=== PATIENT | female | born 1960 | race Caucasian/White ===

== ENCOUNTER 2016-07-16 15:24 | Emergency (ER) | payer OTHER ==
--- NOTE | 2016-07-16 17:20 | ED NURSING NOTES ---
Clinical Report - Nurses [facility] [address] [place] [address] 07/16/2016 15:27 [id number] TRI[facility] Triage time 15:34 Jul 16 2016. Acuity: LEVEL 3. Chief Complaint: VOMITING BLOOD. TAYE COMA SCORE: Taye Coma Scale: 15- eyes open spontaneously (4); best verbal response- oriented x 4 (5); best motor response- obeys commands (6). --15:49 Salma Palacios R.N. 15:34 07/16/16. BP: 185/82. HR: 95. RR: 18. O2 saturation: 94%. Temp: 98.1 F. Pain level now 0/10. --15:49 Salma Palacios R.N. Weight: 77.1 kg stated. Height/Length: 65 inches Per Patient. BMI: 28.3. --15:49 Salma Palacios R.N. Medications Amitriptyline HCl Oral 100 mg, daily. Forenesol. Iron Oral. --15:38 Salma Palacios R.N. Pantoprazole Sodium Oral. --15:38 Salma Palacios R.N. OxyCODONE HCl Oral. --15:38 Salma Palacios R.N. Zofran ODT Oral. --15:39 Salma Palacios R.N. Allergies Baclofen. (falling, incoherant, kidneys don't filter it, stays in her system) plastic tape . Renvela. Sulfa Antibiotics. Wellbutrin. (tachycardia, flush and dizzy) --15:39 Salma Palacios R.N. History Arrived by private vehicle. Historian: patient. Accompanied by family. Primary physician (Mark). This started just prior to arrival. ( Was seen in the ER this am in [place] for back pain. Was on her way home felt nauseated and threw up bright red blood.). She has had nausea and vomiting. No diarrhea, constipation, abdominal pain or fever. Last oral intake by patient was (crackers). 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 PAST MEDICAL HX: Gastroesophageal reflux disease. Peptic ulcer disease. No history of diabetes mellitus. No history of gallstones. Immunizations: up-to-date. The patient has had a hysterectomy. SOCIAL HX: Former smoker, end date 2015. Alcohol use. No drug use. No recent travel. No known contact with a sick individual. SELF HARM ASSESSMENT: A self harm assessment was performed. The patient answered "no" to the question "Have you recently felt down, depressed, or hopeless?" and "Do you have thoughts of harming or killing yourself?". FALL RISK ASSESSMENT: Fall risk assessment completed. No fall risk identified. NUTRITIONAL RISK ASSESSMENT: The nutritional risk assessment revealed no deficiencies. FUNCTIONAL ASSESSMENT: Functional assessment: no impairments noted. LEARNING NEEDS ASSESSMENT: The learning needs assessment revealed no barriers. ABUSE ASSESSMENT: Abuse assessment: (yes) The patient was asked "Do you feel safe in your home?". SKIN INTEGRITY ASSESSMENT: Skin integrity risk assessment completed. No skin integrity risk identified. --15:49 Salma Palacios R.N. PROBLEMS: Anemia. GI Bleeding. End stage renal failure on dialysis. Gallstone(s). Gastroesophageal Reflux Disease. UTI - Urinary Tract Infection. MRSA Infection. Contusion. Laceration. Tetanus Status. Immunizations. --15:39 Salma Palacios R.N. ADDITIONAL SURGERIES: ACL. Appendectomy. AV shunt for dialysis. Cholecystectomy. Fistula. Hernia Repair. Hip Surgery. Hysterectomy. Lumpectomy of breast. Tonsillectomy. Tubal Ligation. Ulnar nerve transfer. --15:39 Salma Palacios R.N. Interventions ID and allergy band on patient. --15:49 Salma Palacios R.N. PHYSICAL ASSESSMENT Ambulatory to room. GENERAL / NEURO / PSYCH: Alert. Oriented X 4. Appears in no acute distress. HEENT: Mucous membranes are pink. RESPIRATORY: Respirations not labored. Breath sounds within normal limits. CVS: Normal sinus rhythm noted. Capillary refill less than 2 seconds. GI / : The patient has had nausea. Abdominal distention. Abdomen soft and nontender. Bowel sounds within normal limits. ( Last BM before arrival and normal). SKIN: Skin is warm and dry. --15:51 Salma Palacios R.N. NURSING PROGRESS NOTES The initial plan of care for this patient includes an assessment with efforts to address patient positioning and appropriate ambient lighting; impairment of the gastrointestinal system. Pulse oximeter and NIBP monitor placed on patient. Patient gowned. Reassurance given. Call light placed in reach. Side rails up x 1. Bed placed in lowest position. Brakes of bed on. --15:51 Salma Palacios R.N. 15:52 07/16/2016 Site #1 started via IV in the right forearm with an 20g angiocath, with aseptic technique and good blood return; two attempts. Blood drawn: rainbow set. Labeled in the presence of the patient and sent to the lab. Saline lock flushed with 10 mL saline (Done by Douglas KRUEGER). --15:52 Salma Palacios R.N. 18:26 07/16/16. BP: 110/61. HR: 70. RR: 18. O2 saturation: 99%. Temp: 98.6 F. Pain level now 3/10. --18:27 Salma Palacios R.N. 18:37 07/16/2016 PROTONIX (Pantoprazole Sodium) IVP 80 mg given over 4 minute(s) via site #1. Allergies verified and confirmed 5 rights. IV patency established. IV site checked: no pain, redness, or swelling. IV flushed thoroughly pre- and post-medication administration. --18:52 Salma Palacios R.N. 18:44 07/16/2016 PROTONIX 80MG (Pantoprazole Sodium) IVP 80 mg given over 8 hour(s) via site #1. Allergies verified and confirmed 5 rights. IV patency established. IV site checked: no pain, redness, or swelling. IV flushed thoroughly pre- and post-medication administration. --18:54 Salma Palacios R.N. DISPOSITION / DISCHARGE 18:26 07/16/16. BP: 110/61. HR: 70. RR: 18. O2 saturation: 99%. Temp: 98.6 F. Pain level now 3/10. --18:50 Salma Palacios R.N. Departure time: 18:51 Jul 16 2016. Condition at departure: stable. Transferred to [facility]. ( [facility] ambulance here report given patient transported.). --18:51 Salma Palacios R.N. 18:42 07/16/2016 Site #[address] upon transfer; patent. Good blood return present. Converted to saline lock and flushed with 10 mL saline. --18:52 Salma Palacios R.N. Locked/Released at 07/16/2016 19:04 by Salma Palacios R.N.
--- NOTE | 2016-07-16 17:20 | ED CLINICAL REPORT ---
Clinical Report - Physicians/Mid Levels [facility] [address] [place] [address] 07/16/2016 15:27 Patient: GENET SHIPLEY Time Seen: 1537; upon arrival, initial patient contact, initial documentation, patient care assumed. Arrived- By private vehicle. Historian- patient. CPT: Critical care 30-74 min plus (#[id number]). HISTORY OF PRESENT ILLNESS Chief Complaint: VOMITING. This started today one episode of about a cup. and is now gone. No recent travel. She has had nausea. She has had mild vomiting (vomit had bright red blood in it). The vomiting has occurred only once and has been blood-tinged. No bilious emesis, feculent emesis, coffee-grounds emesis, frankly bloody emesis or unusually dark emesis. No diarrhea, black stools, bloody stools, abdominal pain or constipation. No flank pain, history of possible bad food exposure, known contact with a sick individual or change in routine. Has not recently been camping or on antibiotics. The illness is described as mild. (pt states her levels have been low for some time now, and she is getting weekly injections of epogen was supposed to do dialysis today). Similar symptoms previously: Frequently, worse. Recent medical care: The patient was seen recently at another facility in the emergency department. ( was at [facility] this am for back pain). REVIEW OF SYSTEMS No fever, difficulty with urination or urination, dizziness or chest pain. No difficulty breathing, excessive urination, skin rash or rash or jaundice. No fainting episodes, epistaxis, sore throat, abdominal pain or bloody stools. No urinary frequency, hematuria, diabetic symptoms or easy bruising. The patient has had black stools and weakness. All systems otherwise negative, except as recorded above. PAST HISTORY See nurses notes. PROBLEMS: Anemia. GI Bleeding.PUD. End stage renal failure on dialysis. Gallstone(s). Gastroesophageal Reflux Disease. UTI - Urinary Tract Infection. MRSA Infection. Contusion. Laceration. Tetanus Status. Immunizations. --15:39 Salma Palacios R.N. ADDITIONAL SURGERIES: ACL. Appendectomy. AV shunt for dialysis. Cholecystectomy. Fistula. Hernia Repair. Hip Surgery. Hysterectomy. Lumpectomy of breast. Tonsillectomy. Tubal Ligation. Ulnar nerve transfer. --15:39 Salma Palacios R.N. SOCIAL HISTORY Former smoker. No alcohol use or drug use. Is a local resident. FAMILY HISTORY Negative. ADDITIONAL NOTES The nursing notes have been reviewed with agreement regarding the chief complaint, HPI, ROS, PMH and patient medications and allergies. PHYSICAL EXAM Vital Signs: 07/16/2016 15:34 BP: 185/82. HR: 95. RR: 18. O2 saturation: 94%. Temp: 98.1 F. Have been reviewed as normal and appear to be correct. Appearance: Alert. Oriented X3. No acute distress. Eyes: Pupils equal, round and reactive to light. Eyes normal inspection. ENT: Pharynx normal. Neck: Normal inspection. Neck supple. CVS: Normal heart rate and rhythm. Heart sounds normal. Pulses normal. Respiratory: No respiratory distress. Breath sounds normal. Abdomen: Soft and nontender. Bowel sounds normal. No organomegaly. No mass. Back: Normal inspection. Rectal: Weakly heme-positive stool; hemoccult director quality systems check passed. (POC test reference range: negative). Rectal exam normal and nontender. Skin: Skin warm and dry. Normal skin color. No rash. Normal skin turgor. Extremities: Extremities exhibit normal ROM. No lower extremity edema. (dialysis shunt L FA, palpable brui, site clear of s/s of infection). Neuro: Oriented X 3. No motor deficit. No sensory deficit. LABS, X-RAYS, AND EKG Laboratory Tests: CBC w Diff: (ANNA: 07/16/2016 15:10) ( MsgRcvd 07/16/2016 16:19) Final results Test Result Flag Units (Reference) WHITE BLOOD COUNT 8.9 K/uL (4.5-11.5) RED BLOOD COUNT 2.63 L M/uL (4.00-5.20) HEMOGLOBIN 7.8 L gm/dL (12.0-16.0) HEMATOCRIT 23.8 L % (36.0-46.0) MEAN CELL VOLUME 90 fL (80-100) MEAN CORPUSCULAR HGB 30 pg (26-34) MEAN CORPUSCULAR HGB CONC 33 g/dL (31-37) RED CELL DISTRIBUTION WIDTH 17.4 H % (11.6-14.8) PLATELET COUNT 355 K/uL (150-400) NEUTROPHIL % 74.5 % (50-75) LYMPH % 14.7 L % (25-40) MONO % 9.4 % (3-14) EOSINOPHIL % 0.9 % (0-4) BASOPHIL % 0.5 % (0-2) PT with INR: (ANNA: 07/16/2016 15:10) ( [facility] 07/16/2016 18:01) Final results Test Result Flag Units (Reference) INR 1.1 (0.8-1.2) Low Intensity Therapy: INR 1.5-2.0 PT range 18.5-23.1Mod.Intensity Therapy: INR 2.0-3.0 PT range 23.1-31.5High Intensity Therapy: INR 2.5-3.5 PT range 27.4-35.5High Intensity Therapy 2: INR 3.0-4.0 PT range 31.5-39.3 APTT 38 H SECONDS (24-34) CMP: (ANNA: 07/16/2016 15:10) ( [facility] 07/16/2016 16:40) Final results Test Result Flag Units (Reference) GLUCOSE 106 mg/dL (70-110) BUN 81 *H mg/dL (7-18) CRITICAL RESULTS CALLEDCalled to ELIANA LOWE RN 07/16/16 1638Were 2 patient identifiers used? YESWas the result read back? YESCRITICAL RESULTS CALLEDCalled to ELIANA LOWE RN 07/16/16 1639Were 2 patient identifiers used? YESWas the result read back? YES CREATININE 11.6 *H mg/dL (0.6-1.3) CRITICAL RESULTS CALLEDCalled to ELIANA LOWE RN 07/16/16 1638Were 2 patient identifiers used? YESWas the result read back? YES Estimated GFR 3.58 mL/min Estimated GFR- 4.34 mL/min Note: Persistent reduction over 3 months in eGFR<60 mL/min/1.73 m2 defines CKD. Patients with eGFR values>=60 mL/min/1.73 m2 may also have CKD if evidence ofpersistent proteinuria. Additional information may be foundat www.kidney.org. SODIUM 138 mmol/L (136-145) POTASSIUM 5.4 H mmol/L (3.5-5.1) CHLORIDE 93 L mmol/L (98-107) CARBON DIOXIDE 27 mmol/L (21-32) CALCIUM 10.2 H mg/dL (8.5-10.1) TOTAL PROTEIN 7.6 g/dL (6.4-8.2) ALBUMIN 3.5 g/dL (3.3-5.0) BILIRUBIN, TOTAL 0.4 mg/dL (0.0-1.0) ALKALINE PHOSPHATASE 136 H U/L (46-116) AST (SGOT) 10 L U/L (15-37) ALT (SGPT) 16 U/L (12-78) LIPASE 277 U/L (73-393) AMYLASE 55 U/L (25-115) . PROGRESS AND PROCEDURES Course of Care: heplock Pt with UGI bleed and in need of dialysis. Will need transfer to [place] for GI work-up and dialysis. Critical care performed (95 minutes). Time is exclusive of separately billable procedures. Time includes: direct patient care, patient reassessment, coordination of patient care, interpretation of data (laboratory data and pulse oximetry), review of patient's medical records and documentation of patient care. Procedures included in critical care time: peripheral IV placement and phlebotomy. Discussed case with on-call health care provider, (Apoorva: [facility] hospitalist.). Reviewed test results. Agreed upon decision to admit. Health care provider will see patient in hospital. Patient/family counseled. Differential Diagnosis: I considered gastritis, gastroenteritis, peptic ulcer disease, Menetriere's disease, gastroesophageal reflux disease, esophagitis, esophageal varices, Salma-Escobar tear of the esophagus, ischemia of bowel, colitis, diverticular disease, intestinal tumor, intestinal polyps, colon cancer, ulcerative colitis and cancer as a possible cause of GI bleed in this patient. This is a partial list of diagnoses considered. Above considerations are based on history, physical exam, reassessment and laboratory data. Differential diagnosis was discussed with patient. Disposition: Transferred to [facility]. CLINICAL IMPRESSION Occult and major GI bleed with hematemesis. Chronic Renal Failure. Blood loss and CRF anemia. (Electronically signed by Corey Azar MD 07/17/2016 20:44)
--- NOTE | 2016-07-16 17:20 | ED NURSING NOTES ---
Clinical Report - Nurses [facility] [address] [place] [address] 07/16/2016 15:27 [id number] TRI[facility] Triage time 15:34 Jul 16 2016. Acuity: LEVEL 3. Chief Complaint: VOMITING BLOOD. TAYE COMA SCORE: Taye Coma Scale: 15- eyes open spontaneously (4); best verbal response- oriented x 4 (5); best motor response- obeys commands (6). --15:49 Salma Palacios R.N. 15:34 07/16/16. BP: 185/82. HR: 95. RR: 18. O2 saturation: 94%. Temp: 98.1 F. Pain level now 0/10. --15:49 Salma Palacios R.N. Weight: 77.1 kg stated. Height/Length: 65 inches Per Patient. BMI: 28.3. --15:49 Salma Palacios R.N. Medications Amitriptyline HCl Oral 100 mg, daily. Forenesol. Iron Oral. --15:38 Salma Palacios R.N. Pantoprazole Sodium Oral. --15:38 Salma Palacios R.N. OxyCODONE HCl Oral. --15:38 Salma Palacios R.N. Zofran ODT Oral. --15:39 Salma Palacios R.N. Allergies Baclofen. (falling, incoherant, kidneys don't filter it, stays in her system) plastic tape . Renvela. Sulfa Antibiotics. Wellbutrin. (tachycardia, flush and dizzy) --15:39 Salma Palacios R.N. History Arrived by private vehicle. Historian: patient. Accompanied by family. Primary physician (Mark). This started just prior to arrival. ( Was seen in the ER this am in [place] for back pain. Was on her way home felt nauseated and threw up bright red blood.). She has had nausea and vomiting. No diarrhea, constipation, abdominal pain or fever. Last oral intake by patient was (crackers). 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 PAST MEDICAL HX: Gastroesophageal reflux disease. Peptic ulcer disease. No history of diabetes mellitus. No history of gallstones. Immunizations: up-to-date. The patient has had a hysterectomy. SOCIAL HX: Former smoker, end date 2015. Alcohol use. No drug use. No recent travel. No known contact with a sick individual. SELF HARM ASSESSMENT: A self harm assessment was performed. The patient answered "no" to the question "Have you recently felt down, depressed, or hopeless?" and "Do you have thoughts of harming or killing yourself?". FALL RISK ASSESSMENT: Fall risk assessment completed. No fall risk identified. NUTRITIONAL RISK ASSESSMENT: The nutritional risk assessment revealed no deficiencies. FUNCTIONAL ASSESSMENT: Functional assessment: no impairments noted. LEARNING NEEDS ASSESSMENT: The learning needs assessment revealed no barriers. ABUSE ASSESSMENT: Abuse assessment: (yes) The patient was asked "Do you feel safe in your home?". SKIN INTEGRITY ASSESSMENT: Skin integrity risk assessment completed. No skin integrity risk identified. --15:49 Salma Palacios R.N. PROBLEMS: Anemia. GI Bleeding. End stage renal failure on dialysis. Gallstone(s). Gastroesophageal Reflux Disease. UTI - Urinary Tract Infection. MRSA Infection. Contusion. Laceration. Tetanus Status. Immunizations. --15:39 Salma Palacios R.N. ADDITIONAL SURGERIES: ACL. Appendectomy. AV shunt for dialysis. Cholecystectomy. Fistula. Hernia Repair. Hip Surgery. Hysterectomy. Lumpectomy of breast. Tonsillectomy. Tubal Ligation. Ulnar nerve transfer. --15:39 Salma Palacios R.N. Interventions ID and allergy band on patient. --15:49 Salma Palacios R.N. PHYSICAL ASSESSMENT Ambulatory to room. GENERAL / NEURO / PSYCH: Alert. Oriented X 4. Appears in no acute distress. HEENT: Mucous membranes are pink. RESPIRATORY: Respirations not labored. Breath sounds within normal limits. CVS: Normal sinus rhythm noted. Capillary refill less than 2 seconds. GI / : The patient has had nausea. Abdominal distention. Abdomen soft and nontender. Bowel sounds within normal limits. ( Last BM before arrival and normal). SKIN: Skin is warm and dry. --15:51 Salma Palacios R.N. NURSING PROGRESS NOTES The initial plan of care for this patient includes an assessment with efforts to address patient positioning and appropriate ambient lighting; impairment of the gastrointestinal system. Pulse oximeter and NIBP monitor placed on patient. Patient gowned. Reassurance given. Call light placed in reach. Side rails up x 1. Bed placed in lowest position. Brakes of bed on. --15:51 Salma Palacios R.N. 15:52 07/16/2016 Site #1 started via IV in the right forearm with an 20g angiocath, with aseptic technique and good blood return; two attempts. Blood drawn: rainbow set. Labeled in the presence of the patient and sent to the lab. Saline lock flushed with 10 mL saline (Done by Douglas KRUEGER). --15:52 Salma Palacios R.N. 18:26 07/16/16. BP: 110/61. HR: 70. RR: 18. O2 saturation: 99%. Temp: 98.6 F. Pain level now 3/10. --18:27 Salma Palacios R.N. 18:37 07/16/2016 PROTONIX (Pantoprazole Sodium) IVP 80 mg given over 4 minute(s) via site #1. Allergies verified and confirmed 5 rights. IV patency established. IV site checked: no pain, redness, or swelling. IV flushed thoroughly pre- and post-medication administration. --18:52 Salma Palacios R.N. 18:44 07/16/2016 PROTONIX 80MG (Pantoprazole Sodium) IVP 80 mg given over 8 hour(s) via site #1. Allergies verified and confirmed 5 rights. IV patency established. IV site checked: no pain, redness, or swelling. IV flushed thoroughly pre- and post-medication administration. --18:54 Salma Palacios R.N. DISPOSITION / DISCHARGE 18:26 07/16/16. BP: 110/61. HR: 70. RR: 18. O2 saturation: 99%. Temp: 98.6 F. Pain level now 3/10. --18:50 Salma Palacios R.N. Departure time: 18:51 Jul 16 2016. Condition at departure: stable. Transferred to [facility]. ( [place] ambulance here report given patient transported.). --18:51 Salma Palacios R.N. 18:42 07/16/2016 Site #[address] upon transfer; patent. Good blood return present. Converted to saline lock and flushed with 10 mL saline. --18:52 Salma Palacios R.N. Locked/Released at 07/16/2016 19:04 by Salma Palacios R.N.
--- NOTE | 2016-07-16 17:20 | ED CLINICAL REPORT ---
Clinical Report - Physicians/Mid Levels [facility] [address] [place] [address] 07/16/2016 15:27 Patient: GENET SHIPLEY Time Seen: 1537; upon arrival, initial patient contact, initial documentation, patient care assumed. Arrived- By private vehicle. Historian- patient. CPT: Critical care 30-74 min plus (#[id number]). HISTORY OF PRESENT ILLNESS Chief Complaint: VOMITING. This started today one episode of about a cup. and is now gone. No recent travel. She has had nausea. She has had mild vomiting (vomit had bright red blood in it). The vomiting has occurred only once and has been blood-tinged. No bilious emesis, feculent emesis, coffee-grounds emesis, frankly bloody emesis or unusually dark emesis. No diarrhea, black stools, bloody stools, abdominal pain or constipation. No flank pain, history of possible bad food exposure, known contact with a sick individual or change in routine. Has not recently been camping or on antibiotics. The illness is described as mild. (pt states her levels have been low for some time now, and she is getting weekly injections of epogen was supposed to do dialysis today). Similar symptoms previously: Frequently, worse. Recent medical care: The patient was seen recently at another facility in the emergency department. ( was at [facility] this am for back pain). REVIEW OF SYSTEMS No fever, difficulty with urination or urination, dizziness or chest pain. No difficulty breathing, excessive urination, skin rash or rash or jaundice. No fainting episodes, epistaxis, sore throat, abdominal pain or bloody stools. No urinary frequency, hematuria, diabetic symptoms or easy bruising. The patient has had black stools and weakness. All systems otherwise negative, except as recorded above. PAST HISTORY See nurses notes. PROBLEMS: Anemia. GI Bleeding.PUD. End stage renal failure on dialysis. Gallstone(s). Gastroesophageal Reflux Disease. UTI - Urinary Tract Infection. MRSA Infection. Contusion. Laceration. Tetanus Status. Immunizations. --15:39 Salma Palacios R.N. ADDITIONAL SURGERIES: ACL. Appendectomy. AV shunt for dialysis. Cholecystectomy. Fistula. Hernia Repair. Hip Surgery. Hysterectomy. Lumpectomy of breast. Tonsillectomy. Tubal Ligation. Ulnar nerve transfer. --15:39 Salma Palacios R.N. SOCIAL HISTORY Former smoker. No alcohol use or drug use. Is a local resident. FAMILY HISTORY Negative. ADDITIONAL NOTES The nursing notes have been reviewed with agreement regarding the chief complaint, HPI, ROS, PMH and patient medications and allergies. PHYSICAL EXAM Vital Signs: 07/16/2016 15:34 BP: 185/82. HR: 95. RR: 18. O2 saturation: 94%. Temp: 98.1 F. Have been reviewed as normal and appear to be correct. Appearance: Alert. Oriented X3. No acute distress. Eyes: Pupils equal, round and reactive to light. Eyes normal inspection. ENT: Pharynx normal. Neck: Normal inspection. Neck supple. CVS: Normal heart rate and rhythm. Heart sounds normal. Pulses normal. Respiratory: No respiratory distress. Breath sounds normal. Abdomen: Soft and nontender. Bowel sounds normal. No organomegaly. No mass. Back: Normal inspection. Rectal: Weakly heme-positive stool; hemoccult quality supervisor check passed. (POC test reference range: negative). Rectal exam normal and nontender. Skin: Skin warm and dry. Normal skin color. No rash. Normal skin turgor. Extremities: Extremities exhibit normal ROM. No lower extremity edema. (dialysis shunt L FA, palpable brui, site clear of s/s of infection). Neuro: Oriented X 3. No motor deficit. No sensory deficit. LABS, X-RAYS, AND EKG Laboratory Tests: CBC w Diff: (ANNA: 07/16/2016 15:10) ( MsgRcvd 07/16/2016 16:19) Final results Test Result Flag Units (Reference) WHITE BLOOD COUNT 8.9 K/uL (4.5-11.5) RED BLOOD COUNT 2.63 L M/uL (4.00-5.20) HEMOGLOBIN 7.8 L gm/dL (12.0-16.0) HEMATOCRIT 23.8 L % (36.0-46.0) MEAN CELL VOLUME 90 fL (80-100) MEAN CORPUSCULAR HGB 30 pg (26-34) MEAN CORPUSCULAR HGB CONC 33 g/dL (31-37) RED CELL DISTRIBUTION WIDTH 17.4 H % (11.6-14.8) PLATELET COUNT 355 K/uL (150-400) NEUTROPHIL % 74.5 % (50-75) LYMPH % 14.7 L % (25-40) MONO % 9.4 % (3-14) EOSINOPHIL % 0.9 % (0-4) BASOPHIL % 0.5 % (0-2) PT with INR: (ANNA: 07/16/2016 15:10) ( [facility] 07/16/2016 18:01) Final results Test Result Flag Units (Reference) INR 1.1 (0.8-1.2) Low Intensity Therapy: INR 1.5-2.0 PT range 18.5-23.1Mod.Intensity Therapy: INR 2.0-3.0 PT range 23.1-31.5High Intensity Therapy: INR 2.5-3.5 PT range 27.4-35.5High Intensity Therapy 2: INR 3.0-4.0 PT range 31.5-39.3 APTT 38 H SECONDS (24-34) CMP: (ANNA: 07/16/2016 15:10) ( [facility] 07/16/2016 16:40) Final results Test Result Flag Units (Reference) GLUCOSE 106 mg/dL (70-110) BUN 81 *H mg/dL (7-18) CRITICAL RESULTS CALLEDCalled to ELIANA LOWE RN 07/16/16 1638Were 2 patient identifiers used? YESWas the result read back? YESCRITICAL RESULTS CALLEDCalled to ELIANA LOWE RN 07/16/16 1639Were 2 patient identifiers used? YESWas the result read back? YES CREATININE 11.6 *H mg/dL (0.6-1.3) CRITICAL RESULTS CALLEDCalled to ELIANA LOWE RN 07/16/16 1638Were 2 patient identifiers used? YESWas the result read back? YES Estimated GFR 3.58 mL/min Estimated GFR- 4.34 mL/min Note: Persistent reduction over 3 months in eGFR<60 mL/min/1.73 m2 defines CKD. Patients with eGFR values>=60 mL/min/1.73 m2 may also have CKD if evidence ofpersistent proteinuria. Additional information may be foundat www.kidney.org. SODIUM 138 mmol/L (136-145) POTASSIUM 5.4 H mmol/L (3.5-5.1) CHLORIDE 93 L mmol/L (98-107) CARBON DIOXIDE 27 mmol/L (21-32) CALCIUM 10.2 H mg/dL (8.5-10.1) TOTAL PROTEIN 7.6 g/dL (6.4-8.2) ALBUMIN 3.5 g/dL (3.3-5.0) BILIRUBIN, TOTAL 0.4 mg/dL (0.0-1.0) ALKALINE PHOSPHATASE 136 H U/L (46-116) AST (SGOT) 10 L U/L (15-37) ALT (SGPT) 16 U/L (12-78) LIPASE 277 U/L (73-393) AMYLASE 55 U/L (25-115) . PROGRESS AND PROCEDURES Course of Care: heplock Pt with UGI bleed and in need of dialysis. Will need transfer to [place] for GI work-up and dialysis. Critical care performed (95 minutes). Time is exclusive of separately billable procedures. Time includes: direct patient care, patient reassessment, coordination of patient care, interpretation of data (laboratory data and pulse oximetry), review of patient's medical records and documentation of patient care. Procedures included in critical care time: peripheral IV placement and phlebotomy. Discussed case with on-call health care provider, (Apoorva: [place] hospitalist.). Reviewed test results. Agreed upon decision to admit. Health care provider will see patient in hospital. Patient/family counseled. Differential Diagnosis: I considered gastritis, gastroenteritis, peptic ulcer disease, Menetriere's disease, gastroesophageal reflux disease, esophagitis, esophageal varices, Salma-Escobar tear of the esophagus, ischemia of bowel, colitis, diverticular disease, intestinal tumor, intestinal polyps, colon cancer, ulcerative colitis and cancer as a possible cause of GI bleed in this patient. This is a partial list of diagnoses considered. Above considerations are based on history, physical exam, reassessment and laboratory data. Differential diagnosis was discussed with patient. Disposition: Transferred to [facility]. CLINICAL IMPRESSION Occult and major GI bleed with hematemesis. Chronic Renal Failure. Blood loss and CRF anemia. (Electronically signed by Corey Azar MD 07/17/2016 20:44)
--- NOTE | 2016-07-16 17:20 | ED ORDER SUMMARY ---
..... Patient: GENET SHIPLEY OrderSheet [facility] VisitID: [id number] [address] [place] [address] 56y, F Registration Date/Time: 07/16/2016 ORDER SHEET Weight: 77.1 kg (stated) Allergies: Baclofen, plastic tape , Renvela, Sulfa Antibiotics, Wellbutrin GENERAL ORDERS: CBC w Diff Urgent (15:45 07/16/2016 HBivens A.R.N.P.) (Ack 15:47 KHoerner) (15:52 LWhalen R.N.) CMP Urgent (15:45 07/16/2016 HBivens A.R.N.P.) (Ack 15:47 KHoerner) (15:52 LWhalen R.N.) Amylase Urgent (15:45 07/16/2016 HBivens A.R.N.P.) (Ack 15:47 KHoerner) (15:52 LWhalen R.N.) Lipase Urgent (15:45 07/16/2016 HBivens A.R.N.P.) (Ack 15:47 KHoerner) (15:52 LWhalen R.N.) PT with INR Urgent (17:43 07/16/2016 Desiree GRIMES) (17:48 KHoerner) PTT Urgent (17:43 07/16/2016 Desiree GRIMES) (17:48 KHoerner) Type & Screen Urgent (17:43 07/16/2016 Desiree GRIMES) (17:48 KHoerner) MEDICATION ORDERS: - (protonix drip 8 mg per hour) (17:53 07/16/2016 Desiree GRIMES) (Cancelled: Other18:52 LWhalen R.N.) IV FLUIDS: IV Saline Lock (15:45 07/16/2016 HBivens A.R.N.P.) (15:52 LWhalen R.N.) Protonix IVP 80mg 80 mg (Mix in NS 20ml over 4min) (17:53 07/16/2016 Desiree GRIMES) (18:52 LWhalen R.N.) Protonix IVP 80mg 80 mg (Mix in NS 20ml over 4min) (18:37 07/16/2016 Desiree GRIMES) (18:54 Nirali Clark) ORDER SHEET NOTES: [Electronically signed by Salma Palacios R.N. (19:04 07/16/2016)] [Electronically signed by Corey Azar MD (20:44 07/17/2016)] [Electronically locked/signed by Salma Palacios R.N. (19:04 07/16/2016)]
--- NOTE | 2016-07-16 17:20 | ED ORDER SUMMARY ---
..... Patient: GENET SHIPLEY OrderSheet [facility] VisitID: [id number] [address] [place] [address] 56y, F Registration Date/Time: 07/16/2016 ORDER SHEET Weight: 77.1 kg (stated) Allergies: Baclofen, plastic tape , Renvela, Sulfa Antibiotics, Wellbutrin GENERAL ORDERS: CBC w Diff Urgent (15:45 07/16/2016 HBivens A.R.N.P.) (Ack 15:47 KHoerner) (15:52 LWhalen R.N.) CMP Urgent (15:45 07/16/2016 HBivens A.R.N.P.) (Ack 15:47 KHoerner) (15:52 LWhalen R.N.) Amylase Urgent (15:45 07/16/2016 HBivens A.R.N.P.) (Ack 15:47 KHoerner) (15:52 LWhalen R.N.) Lipase Urgent (15:45 07/16/2016 HBivens A.R.N.P.) (Ack 15:47 KHoerner) (15:52 LWhalen R.N.) PT with INR Urgent (17:43 07/16/2016 Desiree GRIMES) (17:48 KHoerner) PTT Urgent (17:43 07/16/2016 Desiree GRIMES) (17:48 KHoerner) Type & Screen Urgent (17:43 07/16/2016 Desiree GRIMES) (17:48 KHoerner) MEDICATION ORDERS: - (protonix drip 8 mg per hour) (17:53 07/16/2016 Desiree GRIMES) (Cancelled: Other18:52 LWhalen R.N.) IV FLUIDS: IV Saline Lock (15:45 07/16/2016 HBivens A.R.N.P.) (15:52 LWhalen R.N.) Protonix IVP 80mg 80 mg (Mix in NS 20ml over 4min) (17:53 07/16/2016 Desiree GRIMES) (18:52 LWhalen R.N.) Protonix IVP 80mg 80 mg (Mix in NS 20ml over 4min) (18:37 07/16/2016 Desiree GRIMES) (18:54 Nirali Clark) ORDER SHEET NOTES: [Electronically signed by Salma Palacios R.N. (19:04 07/16/2016)] [Electronically signed by Corey Azar MD (20:44 07/17/2016)] [Electronically locked/signed by Salma Palacios R.N. (19:04 07/16/2016)]
--- NOTE | 2016-07-17 20:44 | ED DISCHARGE INSTRUCTIONS ---
Patient: GENET SHIPLEY General Instructions [facility] VisitID: [id number] [place] [address] 56y, F Registration Date/Time: 07/16/2016 Occult and major GI bleed with hematemesis. Chronic Renal Failure. Blood loss and CRF anemia. ADDITIONAL INFORMATION GI Bleeding (Upper), Stable There are signs that you have bled from your upper intestinal tract (esophagus, stomach or upper intestine). This may be due to: Repeated vomiting which may cause a small tear in the lining of the esophagus, An ulcer in the stomach or duodenum (upper intestine) Severe gastritis (from use of alcohol, aspirin or anti-inflammatory drugs) Esophageal varices (enlarged veins in the esophagus) may also cause bleeding like this. Your exam today showed that you have not lost a large amount of blood and your condition is stable. Bleeding from the upper GI tract causes the stool to turn black. Home Care: 1) If your bleeding is due to an ulcer or gastritis, an acid-blocking medicine will help. Unless an acid delphine was prescribed (or if you cannot afford one that was prescribed), you may use mnhj-ook-mpbxdeu drugs such as Pepcid AC (famotidine), Tagamet (cimetidine) or Zantac (ranitidine). These begin to work within a few hours. Prilosec OTC (omeprazole) is a new type of acid delphine which may be more effective. It takes up to four days for its full effect. You may get additional short-term relief by taking antacids (Mylanta or Maalox). It should be taken one hour after meals and at bedtime. Do not take Tagamet (cimetidine), Zantac (ranitidine) or Carafate (sucralfate) within one hour of an antacid. 2) Avoid factors which increase stomach acid. These include cigarettes, caffeine (coffee, govind, teas) and stress. 3) Avoid substances that irritate your stomach. These include aspirin and anti-inflammatory drugs (such as ibuprofen, Advil, Motrin, naproxen, Aleve, Naprosyn), alcohol and spicy foods. Prednisone and related prescription drugs can cause an ulcer. Discuss with your doctor if you are taking these. 4) Take any prescribed medicine as directed to promote healing. 5) If alcohol is a possible cause of your GI bleeding, it is urgent that you talk with your doctor about ways to help you quit. Follow Up with your doctor as advised. Get Prompt Medical Attention if any of the following occur: -- Stomach pain worsens -- Pain appears, worsens or spreads to the neck, back, shoulder or arm -- You vomit blood (red or black color) -- You feel weak or dizzy, or you faint -- You have fever or abdominal swelling -- Red blood in the stool You have been given the following additional information: GI Bleed, Upper (Stable) (Electronically signed by Corey Azar MD 07/17/2016 20:44)
--- NOTE | 2016-07-17 20:44 | ED MED RECONCILIATION SUMMARY ---
Patient: GENET SHIPLEY Medication Reconciliation Report [facility] VisitID: [id number] [address] [place] [address] 56y, F Registration Date/Time: 07/16/2016 Weight: 77.1 kg Height/Length: 65 in. BMI: 28.3 ALLERGIES: Baclofen, plastic tape , Renvela, Sulfa Antibiotics, Wellbutrin The patient's Home Medications are listed below: THE FOLLOWING MEDICATIONS NEED TO BE RECONCILED: Amitriptyline HCl Oral 100 mg, daily Forenesol Iron Oral OxyCODONE HCl Oral Pantoprazole Sodium Oral Zofran ODT Oral The source(s) of the original Home Medication information: Not obtained. The following Medications were given to the patient in the Emergency Department: PROTONIX [IVP] IVP 80 mg, administered: 07/16/2016 6:37:00 PM PROTONIX 80MG [IVP] IVP 80 mg, administered: 07/16/2016 6:44:00 PM The following Medications were prescribed to the patient: None.
--- NOTE | 2016-07-17 20:44 | ED DISCHARGE INSTRUCTIONS ---
Patient: GENET SHIPLEY General Instructions [facility] VisitID: [id number] [place] [address] 56y, F Registration Date/Time: 07/16/2016 Occult and major GI bleed with hematemesis. Chronic Renal Failure. Blood loss and CRF anemia. ADDITIONAL INFORMATION GI Bleeding (Upper), Stable There are signs that you have bled from your upper intestinal tract (esophagus, stomach or upper intestine). This may be due to: Repeated vomiting which may cause a small tear in the lining of the esophagus, An ulcer in the stomach or duodenum (upper intestine) Severe gastritis (from use of alcohol, aspirin or anti-inflammatory drugs) Esophageal varices (enlarged veins in the esophagus) may also cause bleeding like this. Your exam today showed that you have not lost a large amount of blood and your condition is stable. Bleeding from the upper GI tract causes the stool to turn black. Home Care: 1) If your bleeding is due to an ulcer or gastritis, an acid-blocking medicine will help. Unless an acid delphine was prescribed (or if you cannot afford one that was prescribed), you may use liov-vac-mwkvgyn drugs such as Pepcid AC (famotidine), Tagamet (cimetidine) or Zantac (ranitidine). These begin to work within a few hours. Prilosec OTC (omeprazole) is a new type of acid delphine which may be more effective. It takes up to four days for its full effect. You may get additional short-term relief by taking antacids (Mylanta or Maalox). It should be taken one hour after meals and at bedtime. Do not take Tagamet (cimetidine), Zantac (ranitidine) or Carafate (sucralfate) within one hour of an antacid. 2) Avoid factors which increase stomach acid. These include cigarettes, caffeine (coffee, govind, teas) and stress. 3) Avoid substances that irritate your stomach. These include aspirin and anti-inflammatory drugs (such as ibuprofen, Advil, Motrin, naproxen, Aleve, Naprosyn), alcohol and spicy foods. Prednisone and related prescription drugs can cause an ulcer. Discuss with your doctor if you are taking these. 4) Take any prescribed medicine as directed to promote healing. 5) If alcohol is a possible cause of your GI bleeding, it is urgent that you talk with your doctor about ways to help you quit. Follow Up with your doctor as advised. Get Prompt Medical Attention if any of the following occur: -- Stomach pain worsens -- Pain appears, worsens or spreads to the neck, back, shoulder or arm -- You vomit blood (red or black color) -- You feel weak or dizzy, or you faint -- You have fever or abdominal swelling -- Red blood in the stool You have been given the following additional information: GI Bleed, Upper (Stable) (Electronically signed by Corey Azar MD 07/17/2016 20:44)
--- NOTE | 2016-07-17 20:44 | ED MAR SUMMARY ---
..... Medication Administration Record [facility] [address] [place] [address] Patient: GENET SHIPLEY Visit ID: [id number] 56y, F Weight: 77.1 kg Height/Length: 65 in BMI: 28.3 ALLERGIES: Baclofen, plastic tape , Renvela, Sulfa Antibiotics, Wellbutrin Given 18:37 07/16/2016 Salma Palacios R.N. Medication Administered: PROTONIX [IVP] (PANTOPRAZOLE SODIUM), Dose: 80 mg IVP over 4 minute(s), Site: #1 right forearm. Medication Ordered: Protonix IVP 80mg 80 mg (Mix in NS 20ml over 4min). Given 18:44 07/16/2016 Salma Palacios R.N. Medication Administered: PROTONIX 80MG [IVP] (PANTOPRAZOLE SODIUM), Dose: 80 mg IVP over 8 hour(s), Site: #1. Medication Ordered: Protonix IVP 80mg 80 mg (Mix in NS 20ml over 4min).
--- NOTE | 2016-07-17 20:44 | ED MAR SUMMARY ---
..... Medication Administration Record [facility] [address] [place] [address] Patient: GENET SHIPLEY Visit ID: [id number] 56y, F Weight: 77.1 kg Height/Length: 65 in BMI: 28.3 ALLERGIES: Baclofen, plastic tape , Renvela, Sulfa Antibiotics, Wellbutrin Given 18:37 07/16/2016 Salma Palacios R.N. Medication Administered: PROTONIX [IVP] (PANTOPRAZOLE SODIUM), Dose: 80 mg IVP over 4 minute(s), Site: #1 right forearm. Medication Ordered: Protonix IVP 80mg 80 mg (Mix in NS 20ml over 4min). Given 18:44 07/16/2016 Salma Palacios R.N. Medication Administered: PROTONIX 80MG [IVP] (PANTOPRAZOLE SODIUM), Dose: 80 mg IVP over 8 hour(s), Site: #1. Medication Ordered: Protonix IVP 80mg 80 mg (Mix in NS 20ml over 4min).
--- NOTE | 2016-07-17 20:44 | ED MED RECONCILIATION SUMMARY ---
Patient: GENET SHIPLEY Medication Reconciliation Report [facility] VisitID: [id number] [address] [place] [address] 56y, F Registration Date/Time: 07/16/2016 Weight: 77.1 kg Height/Length: 65 in. BMI: 28.3 ALLERGIES: Baclofen, plastic tape , Renvela, Sulfa Antibiotics, Wellbutrin The patient's Home Medications are listed below: THE FOLLOWING MEDICATIONS NEED TO BE RECONCILED: Amitriptyline HCl Oral 100 mg, daily Forenesol Iron Oral OxyCODONE HCl Oral Pantoprazole Sodium Oral Zofran ODT Oral The source(s) of the original Home Medication information: Not obtained. The following Medications were given to the patient in the Emergency Department: PROTONIX [IVP] IVP 80 mg, administered: 07/16/2016 6:37:00 PM PROTONIX 80MG [IVP] IVP 80 mg, administered: 07/16/2016 6:44:00 PM The following Medications were prescribed to the patient: None.
== END 2016-07-16 18:51 | disposition short-term general hospital (02) ==
LOC: ED SRH 15:24
DX: K92.2 Gastrointestinal hemorrhage, unspecified (principal); D63.1 Anemia in chronic kidney disease; N18.6 End stage renal disease; Z99.2 Dependence on renal dialysis; R11.10 Vomiting, unspecified; Z79.891 Long term (current) use of opiate analgesic; Z88.2 Allergy status to sulfonamides; Z88.8 Allergy status to other drugs, medicaments and biological substances; Z91.048 Other nonmedicinal substance allergy status; Z87.891 Personal history of nicotine dependence